=== PATIENT | male | born 1940 | race Caucasian/White ===

== ENCOUNTER → 2017-03-08 | Outpatient (CLI) | payer MEDICARE ==
--- NOTE | 2017-03-08 09:45 | RADIOLOGY REPORT (SQ) ---
EXAM DESCRIPTION: U/S RETROPERITON (RENAL/AORTA); U/S LTD DUPLEX ART/ROBYN FLOW COMPLETED DATE/TIME: 03/08/2017 8:37 am REASON FOR STUDY: CKD IV (N18.4) N18.4 CHRONIC KIDNEY DISEASE, STAGE 4 (SEVERE) I50.9 HEART FAILUR E, UNSPECIFIED COMPARISON: None. TECHNIQUE: Realtime and static grayscale images acquired. Selected color Doppler, velocities and spe ctral images recorded. LIMITATIONS: Limited visualization of the renal artery origins off the aorta FINDINGS: RIGHT KIDNEY: RENAL ARTERY VELOCITIES: At the hilum, 49 cm/sec. Segmental artery velocity 45 cm/sec. RENAL VEIN: Color doppler flow present, patent. VELOCITY RATIO: 0.9. Normal waveforms. KIDNEY: 8.1 cm in length, with mild diffuse cortical thinning and increased echogenicity LEFT KIDNEY: RENAL ARTERY VELOCITIES: At the hilum, 64 cm/sec. Segmental artery velocity 41 cm/sec. RENAL VEIN: Color doppler flow present, patent. VELOCITY RATIO: 1.1. Normal waveforms. KIDNEY: 10.5 cm in length with mild cortical increased echogenicity. No cortical thinning. BLADDER: No stones. Bilateral ureteral jets identified OTHER: No other significant finding. IMPRESSION: NO DOPPLER EVIDENCE OF HEMODYNAMICALLY SIGNIFICANT RENAL ARTERY STENOSIS. COMMENT: NORMAL RENAL ARTERY/AORTA VELOCITY RATIO IS LESS THAN OR EQUAL TO 3.5. TECHNICAL DOCUMENTATION: JOB ID: [id number] [employer]- All Rights Reserved
== END ==
LOC: RAD 07:58
PROVIDERS: ATTEND Internal Medicine Nephrology
DX: N18.4 Chronic kidney disease, stage 4 (severe) (principal); I50.9 Heart failure, unspecified
CPT/HCPCS: 76770; 93976

== ENCOUNTER → 2017-03-19 | Outpatient (CLI) | payer MEDICARE ==
[2017-03-19 10:34] LABS: ABSOLUTE BASOPHILS # (AUTO) 0.1 10^3/uL (0.0-0.2); ABSOLUTE EOSINOPHILS # (AUTO) 0.7 10^3/uL (0.0-0.6); ABSOLUTE LYMPHOCYTES (AUTO) 2.1 10^3/uL (0.5-4.7); ABSOLUTE MONOCYTES (AUTO) 0.9 10^3/uL (0.1-1.4); ABSOLUTE NEUT (AUTO) 4.7 10^3/uL (1.7-8.2); BASOPHILS % (AUTO) 1.2 % (0-2); EOSINOPHILS % (AUTO) 8.4 % (0-6); HEMOGLOBIN 14.6 g/dL (13.5-17.0); HGB HCT DIFFERENCE -0.2; LYMPHOCYTES % (AUTO) 25.1 % (13-45); MEAN CORPUSCULAR HEMOGLOBIN 27.3 pg (27.0-33.4); MEAN CORPUSCULAR HGB CONC 33.2 g/dL (32.0-36.0); MEAN CORPUSCULAR VOLUME 82 fl (80-97); MONOCYTES % (AUTO) 10.5 % (3-13); RED BLOOD COUNT 5.35 10^6/uL (4.35-5.55); RED CELL DISTRIBUTION WIDTH 15.4 % (11.5-14.0); SEGMENTED NEUTROPHILS % (AUTO) 54.8 % (42-78); WHITE BLOOD COUNT 8.5 10^3/uL (4.0-10.5)
[2017-03-19 11:02] LABS: ALANINE AMINOTRANSFERASE 56 U/L (21-72); ALBUMIN 4.5 g/dL (3.5-5.0); ALKALINE PHOSPHATASE 159 U/L (38-126); ANION GAP 16 (5-19); ASPARTATE AMINO TRANSFERASE 55 U/L (17-59); BILIRUBIN,DIRECT 0.4 mg/dL (0.0-0.4); BILIRUBIN,TOTAL 0.7 mg/dL (0.2-1.3); BLOOD UREA NITROGEN 37 mg/dL (7-20); CALCIUM 9.6 mg/dL (8.4-10.2); CARBON DIOXIDE 29 mmol/L (22-30); CHLORIDE 98 mmol/L (98-107); CREATININE RESULT 1.98 mg/dL (0.52-1.25); GLUCOSE 100 mg/dL (75-110); MAGNESIUM 2.3 mg/dL (1.6-2.3); POTASSIUM 4.2 mmol/L (3.6-5.0); SODIUM 142.7 mmol/L (137-145); TOTAL PROTEIN 7.8 g/dL (6.3-8.2); URIC ACID 10.3 mg/dL (3.5-8.5)
[2017-03-21 11:13] LABS: APPEARANCE,URINE CLEAR; BILIRUBIN,URINE NEGATIVE (NEGATIVE); GLUCOSE, URINE NEGATIVE (NEGATIVE); KETONES,URINE NEGATIVE (NEGATIVE); LEUKOCYTE ESTERASE,URINE NEGATIVE (NEGATIVE); NITRITE,URINE NEGATIVE (NEGATIVE); PROTEIN,URINE NEGATIVE (NEGATIVE); URINE SPECIFIC GRAVITY 1.011; UROBILINOGEN,URINE NEGATIVE mg/dL (<2.0)
== END ==
LOC: OD 09:16
PROVIDERS: ATTEND Internal Medicine Nephrology
DX: I13.0 Hypertensive heart and chronic kidney disease with heart failure and stage 1 through stage 4 chronic kidney disease, or unspecified chronic kidney disease (principal); N18.4 Chronic kidney disease, stage 4 (severe); I50.9 Heart failure, unspecified; M10.00 Idiopathic gout, unspecified site
CPT/HCPCS: 36415; 80053; 81001; 83735; 84443; 84550; 85025

== ENCOUNTER → 2018-08-21 | Outpatient (CLI) | payer MEDICARE, MEDICAID ==
[~2018-08-21] MED LIST: ALBUTEROL SULFATE 0.083% NEB 2.5 MG/3 ML AMPUL NEB ONE
--- NOTE | 2018-08-22 15:20 | Pulmonary Function Test ---
Pulmonary Function Test Date of Procedure:: 08/21/18 INDICATION:: Amiodarone use Referring Provider: BROWN Daugherty [facility] Developer: Teetee Johnson STUDIO TECHNICIAN VIDEO OPERATOR - Report Spirometry: pre-FVC:[3.01 L] [87%] post-FVC[3.02 L] [87% pre-FEV:1[1.87 L] [70%] post-FEV1;[1.85 L] [69% pre-FEV1/FVC %[62] post-FEV1/FVC%[61] [78] [id number]%[0.88 L 33%] [id number]-[id number]%[0.81 L 31%] Lung Volume: Total lung capacity;[3.93 L] % predicted [67] Vital capacity;[67% 3.01 L ] % predicted [87] Inspiratory capacity[1.76 L] FRC N2[2.17 L 71% ERV:0.42 L Residual Volume 0.92 L predicted [36] RV/TLC: percent[23] % predicted [44] Diffusion Capactity: Diffusion Capacity: DLCO;[14.1] % predicted [67] DLCO/VA;[3.70] % predicted [101] Impression: Mild obstructive ventilatory defect. Insignificant response to bronchodilator therapy. This in and of itself does not preclude a clinical trial of bronchodilator therapy. Mild restrictive ventilatory defect. No hyperinflation or air trapping. Mild decrease in diffusion capacity.
== END ==
LOC: RT 11:30
PROVIDERS: ATTEND Nurse Practitioner Adult Health
DX: Z79.899 Other long term (current) drug therapy (principal)
CPT/HCPCS: 94729; 94727; 94060; A9270